=== PATIENT | female | born 1995 | race Caucasian/White ===

== ENCOUNTER 2019-04-14 10:08 | Emergency (ER) | payer MEDICAID ==
[~2019-04-14] VITALS: Ht 162.6 cm; Wt 75.0 kg
[2019-04-14 10:23] VITALS: Ht 162.6 cm; Wt 75.0 kg
[2019-04-14 11:09] LABS: BASOPHILS 0.2 % (0-2); EOSINOPHILS 0.8 % (0-7); HEMATOCRIT 42.6 % (36.0-48.0); HEMOGLOBIN 14.3 g/dL (12-16); IMMATURE GRANULOCYTES 0.2 % (0-5); LYMPHOCYTES 31.5 % (15-50); MCH 29.1 pg (26.0-34.0); MCHC 33.6 g/dL (31.0-37.0); MCV 86.8 fL (80.0-100.0); MEAN PLATELET VOLUME 11.6 fL (7.4-10.4); MONOCYTES 4.7 % (2-11); NEUTROPHILS 62.6 % (40-80); PLATELET COUNT 280 10x3/uL (130-400); RBC 4.91 10x6/uL (4.00-5.40); RDW 12.7 % (11.5-14.5); WBC 8.9 10x3/uL (4.8-10.8)
[2019-04-14 11:12] LABS: BILIRUBIN NEGATIVE (NEGATIVE); EPITHELIAL CELLS 0-5 /hpf (0-5); GLUCOSE NEGATIVE (NEGATIVE); KETONE NEGATIVE (NEGATIVE); NITRITE NEGATIVE (NEGATIVE); RED CELLS - URINE 0-5 /hpf (0-5); UROBILINOGEN NORMAL (NORMAL); WHITE CELLS - URINE 0-5 /hpf (NEGATIVE)
[2019-04-14 11:12] LABS: HCG URINE NEGATIVE (NEGATIVE)
[2019-04-14 11:16] LABS: BACTERIA MODERATE /hpf (NEGATIVE)
[2019-04-14 11:17] LABS: AMORPHOUS SEDIMENT <1+ /lpf (NONE SEEN)
[2019-04-14 11:20] LABS: CALC OSMOLALITY 280 mosm/kg (275-300); CALCIUM 9.1 mg/dL (8.5-10.1); CARBON DIOXIDE 21.8 mmol/L (21.0-32.0); CHLORIDE - SERUM 105 mmol/L (98-107); GLUCOSE 130 mg/dL (74-106); POTASSIUM - SERUM 4.2 mmol/L (3.5-5.1); SODIUM 139 mmol/L (136-145); UREA NITROGEN 14 mg/dL (7-18); eGFR NON AFRICAN AMERICAN 73 mL/min (90-120)
[2019-04-14 11:29] LABS: ALKALINE PHOSPHATASE 131 U/L (30-120); ALT (SGPT) 38 U/L (10-68); AMYLASE - SERUM 29 U/L (25-115); BILIRUBIN - TOTAL 0.32 mg/dL (0.2-1.3); LIPASE 106 U/L (73-393); PROTEIN - SERUM 7.7 g/dL (6.4-8.2); TROPONIN-I < 0.017 ng/mL (0.000-0.060)
[2019-04-14] MEDS ORDERED: KEFLEX500 MG PO (11:40)
[2019-04-14] MEDS ORDERED: MACROBID100 MG PO (11:40)
[2019-04-14 14:04] VITALS: BP 119/63
== END 2019-04-14 14:08 | disposition home or self-care (01) ==
LOC: D.ER 10:08
PROVIDERS: Emergency Medicine
DX: R10.12 Left upper quadrant pain (principal); N39.0 Urinary tract infection, site not specified; E86.0 Dehydration; Z87.442 Personal history of urinary calculi

== ENCOUNTER 2019-06-23 12:23 | Emergency (ER) | payer OTHER ==
[~2019-06-23] VITALS: Ht 162.6 cm; Wt 92.7 kg
[~2019-06-23 12:23] MED LIST: KEFLEX500 MG PO; MACROBID100 MG PO
[2019-06-23 12:34] VITALS: Ht 162.6 cm; Wt 92.7 kg
[2019-06-23 13:52] VITALS: BP 144/86
[2019-06-24 08:10] LABS: HEPATITIS C ANTIBODY <0.1 S/CO RAT (0.0-0.9)
== END 2019-06-23 13:53 | disposition home or self-care (01) ==
LOC: D.ER 12:23
PROVIDERS: Family Medicine
DX: Z20.5 Contact with and (suspected) exposure to viral hepatitis (principal)

== ENCOUNTER → 2019-07-19 23:58 | Outpatient (CLI) | payer OTHER ==
[2019-06-23 12:34] VITALS: BMI 35.1
[2019-07-20 03:47] LABS: ALBUMIN 4.3 g/dL (3.4-5.0); ALKALINE PHOSPHATASE 133 U/L (30-120); ALT (SGPT) 47 U/L (10-68); BILIRUBIN - TOTAL 0.28 mg/dL (0.2-1.3); CALC OSMOLALITY 272 mosm/kg (275-300); CARBON DIOXIDE 21.5 mmol/L (21.0-32.0); CHLORIDE - SERUM 104 mmol/L (98-107); CHOL - HDL RATIO 4.7 ratio (2.3-4.1); CHOLESTEROL, TOTAL 173 mg/dL (0-200); CREATININE - SERUM 0.9 mg/dL (0.6-1.3); GLUCOSE 89 mg/dL (74-106); HDL CHOLESTEROL 37 mg/dL (32-96); LDL CHOLESTEROL 119 mg/dL (0-100); LDL-HDL RATIO 3.2 ratio (1.5-3.5); POTASSIUM - SERUM 4.1 mmol/L (3.5-5.1); PROTEIN - SERUM 7.7 g/dL (6.4-8.2); SODIUM 138 mmol/L (136-145); TRIGLYCERIDE 88 mg/dL (30-200); UREA NITROGEN 8 mg/dL (7-18); eGFR NON AFRICAN AMERICAN 81 mL/min (90-120)
[2019-07-20 03:48] LABS: HEMATOCRIT 45.3 % (36.0-48.0); HEMOGLOBIN 14.6 g/dL (12-16); MCH 29.3 pg (26.0-34.0); MCHC 32.2 g/dL (31.0-37.0); MEAN PLATELET VOLUME 12.6 fL (7.4-10.4); PLATELET COUNT 258 10x3/uL (130-400); RBC 4.98 10x6/uL (4.00-5.40); RDW 13.7 % (11.5-14.5)
[2019-07-20 10:24] LABS: BASOPHILS 1 % (0-2); EOSINOPHILS 2 % (0-7); LYMPHOCYTES 36 % (15-50); MONOCYTES 4 % (2-11); NEUTROPHILS 55 % (40-80); PLATELET ESTIMATE NORMAL; PLATELET MORPHOLOGY PLT CLUMPS PRESENT
[2019-07-20 10:25] LABS: CRENATED CELLS 1+
== END | disposition home or self-care (01) ==
LOC: D.LABREF 23:58
PROVIDERS: ATTEND Legal Medicine
DX: B18.2 Chronic viral hepatitis C (principal); N20.0 Calculus of kidney